=== PATIENT | female | born 1955 | race Caucasian/White ===

== ENCOUNTER 2017-12-31 10:06 | Observation (INO) | payer MEDICARE, OTHER ==
[~2017-12-31 10:06] MED LIST: LACTATED RINGER'S 1,000 ML IV
[2017-12-31] MEDS ORDERED: FENTAnyl 50 MCG/ML VIAL IV ×2 (11:30)
[2017-12-31] MEDS ORDERED: ALBUTEROL 0.083% (NEB) 2.5 MG/3 ML AMP HHN (11:30)
[2017-12-31] MEDS ORDERED: HYDROmorphONE 1 MG/5 ML IV SYRINGE IV ×3 (11:30)
[2017-12-31] MEDS ORDERED: METOCLOPRAMIDE 10 MG INJ IV (11:30)
[2017-12-31] MEDS ORDERED: DIPHENHYDRAMINE 50 MG INJ IV (11:30)
[2017-12-31] MEDS ORDERED: MEPERIDINE 25 MG INJ IV (11:30)
[2017-12-31] MEDS ORDERED: ONDANSETRON 4 MG INJ IV (11:30)
[2017-12-31] MEDS ORDERED: FENTAnyl 50 MCG/ML VIAL (12:24)
[2017-12-31] MEDS ORDERED: SUCCINYLCHOLINE CHLORIDE 100 MG/5 ML SYG IV (14:29)
[2017-12-31] MEDS ORDERED: CEFAZOLIN 1 GM INJ (14:29)
[2017-12-31] MEDS ORDERED: LIDOCAINE 100 MG SYRINGE (14:29)
[2017-12-31] MEDS ORDERED: PROPOFOL 20 ML (14:29)
[2017-12-31] MEDS ORDERED: ROCURONIUM 50 MG INJ (14:29)
[2017-12-31] MEDS ORDERED: SUGAMMADEX SODIUM 200 MG/2 ML VIAL IV (14:30)
[2017-12-31] MEDS ORDERED: ZOLPIDEM 5 MG TAB PO (16:00)
[2017-12-31] MEDS: HYDROCODONE/APAP (10/325) TAB PO (17:20)
[2017-12-31] MEDS: LACTATED RINGER'S 1,000 ML IV (19:16)
[2017-12-31] MEDS: DOCUSATE SODIUM 100 MG CAP PO (20:35)
[2017-12-31] MEDS: KETOROLAC 15 MG INJ IV (21:17)
[2017-12-31] MEDS: HYDROCODONE/APAP (5/325) TAB PO (22:06)
[2018-01-01] MEDS: HYDROCODONE/APAP (10/325) TAB PO (00:12)
[2018-01-01] MEDS: LACTATED RINGER'S 1,000 ML IV ×2 (01:57→05:18)
[2018-01-01] MEDS ORDERED: NON-FORMULARY/PATIENT OWN MED (Losartan-Hydrochlorothiazide (Losartan-HCTZ) 1 TAB) PO (09:00)
[2018-01-01] MEDS: THYROID 60 MG TAB PO (09:00)
[2018-01-01] MEDS: DOCUSATE SODIUM 100 MG CAP PO (09:45)
[2018-01-01] MEDS: POTASSIUM CHLORIDE (SR) 8 MEQ CAP PO (09:45)
[2018-01-01] MEDS: METOPROLOL (XL) 25 MG TAB PO (09:46)
[2018-01-01] MEDS: SOLIFENACIN 5 MG TAB PO (09:47)
[2018-01-01] MEDS: FUROSEMIDE 20 MG TAB PO (09:47)
[2018-01-01] MEDS: HYDROCHLOROTHIAZIDE 12.5 MG CAP PO (09:47)
[2018-01-01] MEDS: LOSARTAN 50 MG TAB PO (09:48)
[2018-01-01] MEDS: DULOXETINE 30 MG CAP DR PO (09:48)
== END 2018-01-01 15:35 | disposition home or self-care (01) ==
LOC: SDS 10:06 → MS1 16:29 → SDS 17:21 → MS1 17:21
DX: N81.4 Uterovaginal prolapse, unspecified (principal)
CPT/HCPCS: 57260; 87086; 88305